=== PATIENT | male | born 1970 | race Caucasian/White ===

== ENCOUNTER 2018-01-11 12:17 | Day surgery (SDC) | payer OTHER ==
[2018-01-11] MEDS: NS 1,000 ML IV (12:48)
[2018-01-11] MEDS ORDERED: fentaNYL 100 MCG/2 ML INJECTION (J3010) As Ordered (12:52)
[2018-01-11] MEDS ORDERED: PROPOFOL 200 MG/20 ML VIAL As Ordered ×2 (12:52→13:11)
[2018-01-11] MEDS ORDERED: LIDOCAINE 2% INJ 100 MG/5 ML SDV (FOR ANES.) As Ordered (12:52)
== END 2018-01-11 14:08 | disposition home or self-care (01) ==
LOC: M OPP 12:17
DX: Z12.11 Encounter for screening for malignant neoplasm of colon (principal); Z86.010 Personal history of colon polyps; D12.7 Benign neoplasm of rectosigmoid junction; D12.3 Benign neoplasm of transverse colon; K21.9 Gastro-esophageal reflux disease without esophagitis; K31.89 Other diseases of stomach and duodenum; R12 Heartburn; M19.90 Unspecified osteoarthritis, unspecified site; F32.9 Major depressive disorder, single episode, unspecified; F41.9 Anxiety disorder, unspecified; G43.909 Migraine, unspecified, not intractable, without status migrainosus; J45.909 Unspecified asthma, uncomplicated; R06.83 Snoring; Z88.5 Allergy status to narcotic agent; Z91.013 Allergy to seafood; Z79.899 Other long term (current) drug therapy; Z80.8 Family history of malignant neoplasm of other organs or systems; Z80.43 Family history of malignant neoplasm of testis
CPT/HCPCS: 45380

== ENCOUNTER → 2018-10-03 | Outpatient (REF) | payer OTHER ==
[2018-10-05 00:06] LABS: Lyme Disease IgG/IgM Antibodie <0.91 ISR (0.00-0.90); Lyme Disease IgM Ab Quantitati <0.80 index (0.00-0.79)
== END ==
LOC: M LAB REF 12:19
DX: Z11.9 Encounter for screening for infectious and parasitic diseases, unspecified (principal); W57.XXXA Bitten or stung by nonvenomous insect and other nonvenomous arthropods, initial encounter; Y92.9 Unspecified place or not applicable
CPT/HCPCS: 86617

== ENCOUNTER → 2019-08-14 | Outpatient (REF) | payer OTHER ==
[~2019-08-14] MED LIST: NAPR-885 PO; PREV1CAP PO; SERT-138 PO
[2019-08-17 00:07] LABS: Lyme Disease IgG/IgM Antibodie <0.91 ISR (0.00-0.90); Lyme Disease IgM Ab Quantitati <0.80 index (0.00-0.79)
== END ==
LOC: M LAB REF 17:01
PROVIDERS: ATTEND Family Medicine
DX: R53.83 Other fatigue (principal); Z11.59 Encounter for screening for other viral diseases

== ENCOUNTER → 2020-01-12 | Outpatient (CLI) | payer OTHER ==
--- NOTE | 2020-01-14 22:27 | SLEEPCENT ---
DATE OF PROCEDURE: 01/12/2020 Ordered by: MELL Grant Nocturnal polysomnography was performed for evaluation of sleep physiology in this patient with a history of excessive somnolence and morning headaches. 7 hours and 28 minutes of data were reviewed. There were 321.5 minutes of sleep identified. Sleep latency was mildly prolonged at 32.5 minutes. REM latency was prolonged at 269 minutes. Sleep architecture showed some poor progression early in the study. Overall sleep efficiency was 72.4% and there was one long REM period about 04:00 a.m. The electrocardiogram showed a sinus rhythm with an average heart rate of 66 beats per minute. EEG showed normal waveforms for awake and sleep. There were 27 respiratory events identified of 10 seconds in duration or greater for an apnea-hypopnea index of 5.1. The events were not exclusive to the supine posture, but were more frequent there. They were not exclusive to sleep stage. Arousals occurred 3.5 times per hour. There were no oxygen desaturations and significant activity was however appreciated in the limb leads. There were four trains of 30 events. Limb movement arousal index 9.3. IMPRESSION 1. Mild somewhat positional obstructive sleep apnea syndrome (G47.33). Apnea-hypopnea index 5.1. 2. Mild periodic limb activity (G47.61). Limb movement arousal index 9.3. RECOMMENDATIONS Sleep position retraining for avoidance of the supine posture may be sufficient to address the patient's obstructive respiratory events. Should symptoms persist, it may be necessary for him to return to the sleep disorder center for pressure therapy. Interventions to reduce the frequency of arousal from limb activity should also be helpful.
== END ==
LOC: M SLEEP 20:00
PROVIDERS: ATTEND Nurse Practitioner Adult Health
DX: G47.30 Sleep apnea, unspecified (principal)

== ENCOUNTER → 2020-02-23 | Outpatient (CLI) | payer OTHER ==
--- NOTE | 2020-02-27 08:54 | SLEEPCENT ---
DATE OF PROCEDURE: 02/23/2020 ORDERED BY: Sandy Dickson NP Nocturnal polysomnography was performed for the titration of pressure therapy in this patient with obstructive sleep apnea syndrome. Apnea-hypopnea index 5.1. For testing a ResMed Mirage FX nasal mask of standard size was used; 4 cm of water pressure were applied to the circuit and the lights were extinguished. 6 hours and 47 minutes of data were reviewed. There were 337 minutes of sleep identified. Sleep latency was mildly prolonged 29.5 minutes. Rapid eye movement (REM) latency was delayed at 187.5 minutes. Sleep architecture improved later in the study. On optimal pressure therapy, there two REM cycles noted. Overall sleep efficiency was 83.7%. The electrocardiogram showed a sinus rhythm with an average heart rate of 68 beats per minute. Electroencephalogram (EEG) showed normal waveforms for awake and sleep. Respiratory events were fully palliated with CPAP at a pressure of +6. Some limb activity persisted with three trains of 30 events. Limb movement arousal index was 10.9. IMPRESSION: 1. Obstructive sleep apnea syndrome (G4 7.33). 2. Possible periodic limb movement disorder (G47.61). Limb movement arousal index 10.9. RECOMMENDATIONS: Nightly use of pressure therapy at 6 cm of water should be sufficient to address the patient's obstructive respiratory events. Should sleep symptoms persist interventions to reduce the frequency arousal from limb activity may also be helpful.
== END ==
LOC: M SLEEP 20:00
PROVIDERS: ATTEND Nurse Practitioner Adult Health
DX: G47.33 Obstructive sleep apnea (adult) (pediatric) (principal)

== ENCOUNTER → 2020-10-02 | Outpatient (REF) | payer OTHER ==
[2020-10-05 19:07] LABS: Lyme Disease IgG/IgM Antibodie <0.91 ISR (0.00-0.90); Lyme Disease IgM Ab Quantitati <0.80 index (0.00-0.79)
== END ==
LOC: M LAB REF 16:20
PROVIDERS: ATTEND Family Medicine
DX: S70.262A Insect bite (nonvenomous), left hip, initial encounter (principal); W18.30XA Fall on same level, unspecified, initial encounter; Y92.009 Unspecified place in unspecified non-institutional (private) residence as the place of occurrence of the external cause

== ENCOUNTER → 2021-10-05 | Outpatient (REF) | payer OTHER ==
[2021-10-05 17:23] LABS: AMYLASE 63 U/L (25-115); LIPASE 132 U/L (73-393)
== END ==
LOC: M LAB REF 16:25
PROVIDERS: ATTEND Family Medicine
DX: R10.13 Epigastric pain (principal)

== ENCOUNTER → 2021-10-13 | Outpatient (CLI) | payer OTHER ==
[~2021-10-13] MED LIST changes: +GASTROGRAFIN SOLUTION 30ML (Q9963) ONE; +ISOVUE-370 76% 100ML VIAL ONE
== END ==
LOC: M PLAIMG 12:04
PROVIDERS: ATTEND Family Medicine
DX: K76.89 Other specified diseases of liver (principal); R10.13 Epigastric pain
CPT/HCPCS: 74178; Q9963; Q9967

== ENCOUNTER → 2022-01-18 | Outpatient (CLI) | payer OTHER ==
[~2022-01-18] MED LIST changes: -GASTROGRAFIN SOLUTION 30ML (Q9963) ONE; -ISOVUE-370 76% 100ML VIAL ONE
== END ==
LOC: M PLAIMG 13:51
PROVIDERS: ATTEND Chiropractor
DX: M54.12 Radiculopathy, cervical region (principal)

== ENCOUNTER → 2022-08-09 | Outpatient (REF) | payer OTHER | LOC: M LAB REF 12:49 | PROVIDERS: ATTEND Family Medicine | DX: S40.261A Insect bite (nonvenomous) of right shoulder, initial encounter (principal); R53.83 Other fatigue; M25.531 Pain in right wrist; W18.30XA Fall on same level, unspecified, initial encounter; Y92.009 Unspecified place in unspecified non-institutional (private) residence as the place of occurrence of the external cause ==

== ENCOUNTER → 2022-08-26 | Outpatient (REF) | payer OTHER | LOC: M LAB REF 16:27 | PROVIDERS: ATTEND Family Medicine | DX: S40.261A Insect bite (nonvenomous) of right shoulder, initial encounter (principal); W18.30XA Fall on same level, unspecified, initial encounter; Y92.009 Unspecified place in unspecified non-institutional (private) residence as the place of occurrence of the external cause ==

== ENCOUNTER → 2023-06-16 | Outpatient (CLI) | payer OTHER | LOC: M PLARAD 08:44 | PROVIDERS: ATTEND Student in an Organized Health Care Education/Training Program | DX: M47.816 Spondylosis without myelopathy or radiculopathy, lumbar region (principal); M54.50 Low back pain, unspecified ==

== ENCOUNTER 2024-01-04 07:04 | Day surgery (SDC) | payer OTHER ==
[~2024-01-04] VITALS: Ht 167.6 cm; Wt 87.5 kg
[~2024-01-04 07:04] MED LIST changes: +ATEN25TA PO; +OMEP40CA4 PO; +PROA1AER2 INH; +SERT-141 PO
[2024-01-04] MEDS: NS 1,000 ML IV ONE (07:27)
[2024-01-04 08:25] VITALS: TEMP 98.5
[2024-01-04] MEDS ORDERED: propofoL 500 MG/50 ML VIAL As Ordered ONE (08:37)
[2024-01-04 08:44] VITALS: BP 127/74; O2SAT 97
== END 2024-01-04 09:02 | disposition home or self-care (01) ==
LOC: M OPP 07:04
PROVIDERS: ATTEND Surgery
DX: Z12.11 Encounter for screening for malignant neoplasm of colon (principal); Z86.010 Personal history of colon polyps; K57.30 Diverticulosis of large intestine without perforation or abscess without bleeding; K44.9 Diaphragmatic hernia without obstruction or gangrene; K31.89 Other diseases of stomach and duodenum; G47.30 Sleep apnea, unspecified; Z79.1 Long term (current) use of non-steroidal anti-inflammatories (NSAID); Z79.899 Other long term (current) drug therapy; Z91.018 Allergy to other foods; Z88.5 Allergy status to narcotic agent